=== PATIENT | male | born 1970 | race Caucasian/White ===

== ENCOUNTER 2018-11-30 18:58 | Emergency (ER) | payer SELFPAY ==
[2018-11-30] MEDS ORDERED: NA CHLORIDE 0.9% 500 ML ONE (21:56)
[2018-11-30] MEDS ORDERED: THIAMINE 200 MG/2 ML INJ ONE (21:56)
[2018-11-30 22:16] LABS: Absolute Lymphocytes (CBC) 3.2 K/uL (0.7-4.9); Absolute Monocytes 0.5 K/uL (0.1-1.3); Absolute Neutrophil 4.3 K/uL (1.8-8.0); Basophils % 0.6 % (0-1.3); Eosinophils % 4.6 % (0-4.4); Hematocrit 44.8 % (39.6-49.0); Lymphocytes % 37.9 % (15.3-44.8); MPV 9.8 fL (7.6-11.3); Monocytes % 5.6 % (3.3-12.3); RBC Red Blood Cell Count 4.67 M/uL (4.33-5.43)
[2018-11-30 22:24] LABS: Protime INR 1.01
[2018-11-30 22:32] LABS: Urine Blood NEGATIVE (NEG); Urine Glucose NEGATIVE (NEG); Urine Protein NEGATIVE (NEG); Urine pH 6.5 (5.0-7.0)
[2018-11-30 22:34] LABS: Barbiturates NEGATIVE (NEGATIVE); Benzodiazepines NEGATIVE (NEGATIVE); Cocaine NEGATIVE (NEGATIVE); METHAMPHETAM NEGATIVE (NEGATIVE); Methadone NEGATIVE (NEGATIVE); Opiates NEGATIVE (NEGATIVE); Phencyclidine NEGATIVE (NEGATIVE); THC Cannibis POSITIVE (NEGATIVE)
[2018-11-30 22:43] LABS: ALT/SGPT 33 U/L (12-78); AST/SGOT 28 U/L (15-37); Albumin 3.7 g/dL (3.4-5.0); Alkaline Phosphatase 44 U/L (45-117); BUN Blood Urea Nitrogen 5 mg/dL (7-18); Bicarbonate 24 mmol/L (21-32); Bilirubin Direct 0.2 mg/dL (0-0.2); Bilirubin Total 0.4 mg/dL (0.2-1.0); Glucose Level 95 mg/dL (74-106); Potassium 3.9 mmol/L (3.5-5.1); Sodium Level 145 mmol/L (136-145)
[2018-11-30] MEDS ORDERED: CEFTRIAXONE/SWI 1gm 1 GM/10 ML SYR ONE (22:57)
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
--- NOTE | 2018-12-01 07:21 | EKG ---
Test Date: 2018-11-30 Test Time: 22:10:24 Computer Recycling Worker: SAUL MEASUREMENT RESULTS: Intervals: Rate: 78 [place]: 156 QRSD: 90 QT: 412 QTc: 469 [place]: P: 69 [place]: 156 QRS: 55 T: 74 INTERPRETIVE STATEMENTS: Normal sinus rhythm Normal ECG No previous ECG available for comparison Electronically Signed On 12-01-18 07:20:28 SUSTAINABILITY CONSULTANT by Juan Munoz
--- NOTE | 2018-12-01 15:47 | RAD REPORT ---
EXAM DESCRIPTION: CT - Head Brain Wo Cont - 11/30/2018 11:27 pm CLINICAL HISTORY: 48 years Male DIZZINESS COMPARISON: None. TECHNIQUE: Contiguous axial images of the brain were obtained without the administration of intravenous contrast . This exam was performed according to our departmental dose-optimization program, which includes aut omated exposure control, adjustment of the mA and/or kV according to patient size and/or less of iter ative reconstruction technique. FINDINGS: Brain: No acute intracranial hemorrhage. No acute territorial infarct. No extra-axial penelope ection. No mass effect or herniation. Midline structures are within normal limits. Ventricles: Within normal limit in size and configuration. Globes and orbits: No acute abnormality. Bones: No acute osseous finding. Paranasal sinuses: Diffuse opacification of the left maxillary sinus with chronic osteitis changes. Mastoid air cells: Well pneumatized. Soft tissues: Within normal limits Advertising Intern view shows no additional significant finding IMPRESSION: No acute intracranial abnormality. Chronic left maxillary sinus opacification. Electronically signed by Allen Myers DO 11/30/2018 9:56 PM MARINE SERVICE STATION ATTENDANT Due to temporary technical issues with the PACS/Fluency reporting system, reports are being signed by the in house radiologist as a courtesy to ensure prompt reporting. The interpreting radiologist is f ully responsible for the content of the report.
== END 2018-11-30 23:35 | disposition home or self-care (01) ==
LOC: ER 18:58
DX: R44.0 Auditory hallucinations (principal); F10.129 Alcohol abuse with intoxication, unspecified; J01.90 Acute sinusitis, unspecified; F17.210 Nicotine dependence, cigarettes, uncomplicated
CPT/HCPCS: 36415; 70450; 80048; 80076; 80307; 80320; 80329; 81003; 85025; 85610; 85730; 93005; 96374; 96375; 99284; J0696; J3411

== ENCOUNTER 2018-12-26 16:13 | Emergency (ER) | payer SELFPAY ==
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
== END 2018-12-26 16:26 | disposition left against medical advice (07) ==
LOC: ER 16:13
DX: Z02.9 Encounter for administrative examinations, unspecified (principal)
CPT/HCPCS: 99283